=== PATIENT | female | born 1970 | race Caucasian/White ===

== ENCOUNTER 2016-06-02 19:25 | Emergency (ER) | payer OTHER ==
[2016-06-02] MEDS ORDERED: FENTANYL 100 MCG/2 ML VIAL ONE (20:00)
[2016-06-02] MEDS ORDERED: PROCHLORPERAZINE 5 MG/ML 2 ML VIAL ONE (20:00)
[2016-06-02] MEDS ORDERED: KETOROLAC TROMETHAMINE 15 MG/ML VIAL ONE (20:00)
[2016-06-02 20:18] LABS: PH,URINE 6.5 (5.0-8.0); URINE BILIRUBIN NEGATIVE (NEGATIVE); URINE BLOOD TRACE (NEGATIVE); URINE GLUCOSE (UA) NEGATIVE (NEGATIVE); URINE LEUKOCYTE ESTERASE NEGATIVE (NEGATIVE); URINE NITRITE NEGATIVE (NEGATIVE); URINE PROTEIN NEGATIVE (NEGATIVE); URINE UROBILINOGEN NORMAL (0-1 mg/dl)
[2016-06-02 20:19] LABS: HCG,QUALITATIVE URINE NEGATIVE
[2016-06-02 20:23] LABS: URINE APPEARANCE CLEAR; URINE COLOR YELLOW
[2016-06-02 20:24] LABS: CALCIUM 8.9 mg/dL (8.6-10.3)
[2016-06-02 20:31] LABS: URINE RBC 0-2 /hpf
[2016-06-02 20:32] LABS: URINE BACTERIA 0; URINE EPITHELIAL CELLS 0-2 /hpf; URINE WBC NEG /hpf
[2016-06-02] MEDS ORDERED: SODIUM CHLORIDE 0.9% 1,000 ML ONE (21:00)
--- NOTE | 2016-06-03 07:45 | CT ---
Exam Type: ABD/PELVIS W/O CON Date and Time: 06/02/2016 9:11 PM Clinical information: Bilateral flank pain with history of kidney stones. Comparison: None Procedure: Imaging device: Prot[employer] Aquilion [address] scanner 1 mm axial images were obtained through the abdomen and pelvis. Stacked reconstructed 3, 4 and 5 mm images were photographed in the axial coronal and sagittal planes. No oral contrast was utilized for this examination. Exam: Without intravenous contrast. FINDINGS: Lung bases:The visualized lung bases appear to be appropriate with no mass, effusion or consolidation visualized. Liver: the liver is homogeneous with no discrete abnormality visualized. No definite findings of biliary dilatation are observed. Spleen: The spleen is homogeneous and does not appear to be enlarged. Gallbladder: Surgically absent. Pancreas: Normal without enlargement or evidence of adjacent inflammatory changes. Adrenal glands: Normal without enlargement or evidence of adjacent inflammatory changes. Abdominal aorta: The aorta is of normal caliber and appears to be without significant atherosclerotic disease. Kidneys: The kidneys appear to be symmetric in size with no perinephric inflammatory changes are identified. No current findings of hydronephrosis are seen. No evidence of an intrarenal or intraureteral calculus is visualized. Bowel structures: The visualized bowel is of normal caliber without evidence of dilatation or obstruction. No free fluid or mesenteric inflammatory changes are identified. Appendix: Not well visualized. No pericecal inflammatory stranding is identified however. Bladder: The bladder is of normal contour. No wall thickening or significant distention is observed. Hernia: No abdominal wall or inguinal hernia is visualized on this examination. Adenopathy: No significant enlarged adenopathy is visualized. Osseous structures: No discrete osseous abnormalities are identified. Pelvic structures: No discrete pelvic abnormalities are visualized in this examination. IMPRESSION: 1. No evidence of an intrarenal or intraureteral calculus. 2. Nonvisualization of the appendix. 3. Prior cholecystectomy. The findings were called to the emergency room at 2203 hours, 06/02/2016, by [facility].
== END 2016-06-02 22:47 | disposition home or self-care (01) ==
LOC: ED 19:25
DX: R10.9 Unspecified abdominal pain (principal); I10 Essential (primary) hypertension; Z87.442 Personal history of urinary calculi; F17.210 Nicotine dependence, cigarettes, uncomplicated
CPT/HCPCS: 81025; 80048; 81001; 74176; 96375 ×2; 99284; 96374; 99283; J0780; J3010; J1885; J7030